=== PATIENT | female | born 1985 | race Caucasian/White ===

== ENCOUNTER 2017-01-27 17:39 | Emergency (ER) | payer MEDICAID, OTHER ==
[~2017-01-27] VITALS: Ht 177.8 cm; Wt 99.8 kg
[2017-01-27 17:57] VITALS: BP 123/76
[2017-01-27 18:54] LABS: Basophils # (auto) 0 uL; Basophils % (auto) 0.4 % (0.0-2.0); CONDITION Y; Eosinophils # (auto) 0 uL; Eosinophils % (auto) 0.8 % (0.0-7.0); Hematocrit 34.8 % (36.0-46.0); Hemoglobin 12.1 g/dL (12.2-16.2); Lymphocytes # (auto) 1.6 uL; Lymphocytes % (auto) 27.5 % (10.0-50.0); Mean Corpuscular Hemoglobin 28.5 pg (28.0-32.0); Mean Corpuscular Hgb Conc. 34.6 g/dL (32.0-36.0); Mean Corpuscular Volume 82.6 fL (80.0-100.0); Monocytes # (auto) 0.4 uL; Monocytes % (auto) 6.8 % (0.0-12.0); Neutrophils # (auto) 3.8 uL; Neutrophils % (auto) 64.5 % (37.0-80.0); Platelet Count (auto) 203 10^3/uL (140-450); Red Cell Distribution Width 14.3 % (11.6-16.0); White Blood Cell 5.9 10^3/uL (4.4-10.8)
[2017-01-27 19:01] LABS: Urine Bilirubin Negative (Negative); Urine Blood Negative /uL (Negative); Urine Color Yellow (Yellow); Urine Glucose Normal (Normal); Urine Mucus FEW (None Seen); Urine Nitrite Negative (Negative); Urine RBC 1 /hpf (0 - 4); Urine Squamous Epithelial Cell FEW /hpf (<5); Urine Urobilinogen Normal (Negative)
[2017-01-27 19:02] LABS: Urine Ketone 1+ (Negative)
[2017-01-27 19:10] LABS: Albumin 2.8 g/dL (3.4-5.0); BUN/Creatinine Ratio 17.6; Calcium 7.8 mg/dL (8.5-10.1); Potassium 3.7 mmol/L (3.5-5.1)
[2017-01-27 19:12] LABS: Bilirubin, Total 0.5 mg/dL (0.2-1.0); Total Protein 6.4 g/dL (6.4-8.2)
[2017-01-28] MEDS ORDERED: HYDROcodone-ACET 5/325MG TAB PO ONE (01:45)
== END 2017-01-28 01:46 | disposition home or self-care (01) ==
LOC: ER 17:39 → EDBD 17:39 → ER 01-28 01:46
DX: O26.892 Other specified pregnancy related conditions, second trimester (principal); R51 Headache; Z3A.19 19 weeks gestation of pregnancy; J02.9 Acute pharyngitis, unspecified
CPT/HCPCS: 36415; 80053; 81001; 84702; 85025; 93005; 99285; J7030